=== PATIENT | male | born 1945 | race Caucasian/White ===

== ENCOUNTER 2020-09-07 06:38 | Day surgery (SDC) | payer MEDICARE, BC ==
[2020-09-06 13:58] LABS: BASOPHILS # (AUTO) 0.1 X10'3 (0-0.2); BASOPHILS % (AUTO) 1.3 % (0-1); EOSINOPHILS # (AUTO) 0.2 X10'3 (0-0.9); EOSINOPHILS % (AUTO) 4.8 % (0-6); HEMOGLOBIN 12.7 g/dl (14.0-17.9); LYMPHOCYTES # (AUTO) 1.4 X10'3 (1.1-4.8); LYMPHOCYTES % (AUTO) 33.3 % (21-51); MEAN CORPUSCULAR HGB CONC 31.8 g/dL (33.0-36.5); MEAN CORPUSCULAR VOLUME 81.8 FL (78-98); MEAN PLATELET VOLUME 9.3 FL (7.4-10.4); MONOCYTES # (AUTO) 0.4 X10'3 (0-0.9); MONOCYTES % (AUTO) 10.4 % (2-12); NEUTROPHILS % (AUTO) 50.2 % (42-75); PLATELET COUNT 183 X10'3 (140-440); RED BLOOD COUNT 4.89 X10'6 (4.70-6.10); RED CELL DISTRIBUTION WIDTH 16.8 % (11.5-14.5); WHITE BLOOD COUNT 4.1 X10'3 (4.5-11.0)
[2020-09-06 14:08] LABS: PARTIAL THROMBOPLASTIN TIME 25 SECONDS (22-32)
[2020-09-06 14:14] LABS: ALBUMIN 3.5 G/DL (3.4-5.0); ANION GAP 10 (8-16); BLOOD UREA NITROGEN 19 MG/DL (7-18); BUN/CREATININE RATIO 16.4 (5.4-32.0); CALCIUM 8.8 MG/DL (8.5-10.1); CHLORIDE 104 MMOL/L (99-107); CREATININE 1.16 MG/DL (0.60-1.10); GLUCOSE 329 MG/DL (70-104); POTASSIUM 4.6 MMOL/L (3.5-5.1); SODIUM 137 MMOL/L (135-145); eGFR 62 ML/MIN
[~2020-09-07] VITALS: Ht 188 cm; Wt 96.3 kg
[2020-09-07] VITALS (13 sets, daily range): BP systolic 130–155; BP diastolic 66–78
[2020-09-07] MEDS ORDERED: normal saline 1,000 ML IV SCH (06:55)
[2020-09-07] MEDS ORDERED: LIDOcaine/PRILOcaine 5gm cream TP ONE (06:55)
[2020-09-07] MEDS ORDERED: LORazepam 0.5 MG tablet PO PRN (06:55)
[2020-09-07] MEDS ORDERED: diphenhydrAMINE 25mg capsule PO PRN (06:55)
[2020-09-07] MEDS ORDERED: SAW1CAPS5 PO (07:48)
[2020-09-07] MEDS ORDERED: HUM7525 SQ (07:48)
[2020-09-07] MEDS ORDERED: MULT-1085 PO (07:48)
[2020-09-07] MEDS ORDERED: MAGN400C PO (07:48)
[2020-09-07] MEDS ORDERED: FLEC100T35 PO (07:48)
[2020-09-07] MEDS ORDERED: SAW/1TAB2 PO (07:48)
[2020-09-07] MEDS ORDERED: METF500T PO (07:48)
[2020-09-07] MEDS ORDERED: CARV-49 PO (07:48)
[2020-09-07] MEDS ORDERED: FLO0.4C PO (07:48)
[2020-09-07] MEDS ORDERED: ALOG25TA2 PO (07:48)
[2020-09-07] MEDS ORDERED: vitamin b12 PO (07:48)
[2020-09-07] MEDS ORDERED: LOSA50TA64 PO (07:48)
[2020-09-07] MEDS ORDERED: OMEP20TA23 PO (07:48)
[2020-09-07] MEDS ORDERED: vitamin d3 PO (07:48)
[2020-09-07] MEDS ORDERED: APIX5TAB3 PO (07:48)
[2020-09-07] MEDS ORDERED: PREG200C PO (07:48)
[2020-09-07] MEDS ORDERED: ATOR10TA87 PO (07:48)
[2020-09-07] MEDS ORDERED: nitroGLYCERIN-Tridil 50MG/D5W 250 ML IV ONE (09:55)
[2020-09-07] MEDS ORDERED: iohexol 350 MG/ML 50ML vial IV ONE ×2 (09:55→11:08)
[2020-09-07] MEDS ORDERED: heparin 1,000unit/ml 10ml vial 10 ML ONE (09:55)
[2020-09-07] MEDS ORDERED: fentaNYL/PF 50MCG/1 ML 2ML syringe ONE (09:55)
[2020-09-07] MEDS ORDERED: verapamil 2.5 mg/ml inj IV ONE (09:55)
[2020-09-07] MEDS ORDERED: iohexol 350MG/ML 100ml bottle IV ONE (09:55)
[2020-09-07] MEDS ORDERED: midazolam 1 mg/ML 2ml injection ONE (09:55)
[2020-09-07] MEDS ORDERED: LIDOcaine 1% (10mg/ml)w/preservative injection 20ml MDV ONE (09:55)
--- NOTE | 2020-09-07 10:10 | NUR ---
Patient to flower shop laborer/designer via gurney.
[2020-09-07] MEDS ORDERED: HYDROcodone/acetaminophen 5mg/325mg tablet PO PRN (12:20)
[2020-09-07] MEDS ORDERED: HYDROcodone/acetaminophen 10/325mg tab PO PRN (12:20)
--- NOTE | 2020-09-07 14:16 | NUR ---
Report given to Ghislaine ARRIAGA. All questions answered.
--- NOTE | 2020-09-07 15:00 | NUR ---
Patient states severe pain due to need to void, states that he is going to have to roll or stand to use urinal. He has been trying for more than 20 minutes and is unable. Requested miller catheter to be placed. States that he does not want to wait until able to sit up at 1540. Placed miller catheter per written order. Will continue to monitor.
== END 2020-09-07 17:00 | disposition home or self-care (01) ==
LOC: SSTAY O 06:38
PROVIDERS: ATTEND Internal Medicine Cardiovascular Disease
DX: R94.39 Abnormal result of other cardiovascular function study (principal); R06.02 Shortness of breath; I25.10 Atherosclerotic heart disease of native coronary artery without angina pectoris; E11.9 Type 2 diabetes mellitus without complications; I10 Essential (primary) hypertension; E78.5 Hyperlipidemia, unspecified; I48.0 Paroxysmal atrial fibrillation; G47.30 Sleep apnea, unspecified; N40.0 Benign prostatic hyperplasia without lower urinary tract symptoms; Z87.440 Personal history of urinary (tract) infections; Z79.84 Long term (current) use of oral hypoglycemic drugs; Z79.01 Long term (current) use of anticoagulants; Z79.899 Other long term (current) drug therapy; Z87.891 Personal history of nicotine dependence
CPT/HCPCS: 36415; 76937; 80048; 82948; 85025; 85610; 85730; 93005; 93458; 93567; 99152; 99153; C1760; C1769; C1894; J1644; J2001; J2250; J3010; J7030; Q0163; Q9967; A4620; A5120; J3490

== ENCOUNTER 2022-10-29 12:45 | Outpatient (CLI) | payer MEDICARE, BC ==
[~2022-10-29 12:45] MED LIST: ALOG25TA2 PO; APIX5TAB3 PO; ATOR10TA87 PO; CARV-49 PO; FLEC100T35 PO; FLO0.4C PO; HUM7525 SQ; LOSA50TA64 PO; MAGN400C PO; METF500T PO; MULT-1085 PO; OMEP20TA23 PO; PREG200C PO; SAW/1TAB2 PO; SAW1CAPS5 PO; vitamin b12 PO; vitamin d3 PO
== END 2022-10-29 23:59 | disposition home or self-care (01) ==
LOC: CARD DIAG 12:45
PROVIDERS: ATTEND Internal Medicine Cardiovascular Disease
DX: R06.02 Shortness of breath (principal); I08.8 Other rheumatic multiple valve diseases; R53.83 Other fatigue
CPT/HCPCS: 93306